=== PATIENT | male | born 1990 | race African-American/Black ===

== ENCOUNTER 2018-05-18 15:38 | Emergency (ER) | payer OTHER ==
[~2018-05-18] VITALS: Ht 182.9 cm; Wt 75.0 kg
[2018-05-18] MEDS ORDERED: MELA1LIQ2 PO (15:46)
[2018-05-18 16:16] LABS: BASO % 0.5 % (0.0-1.0); EOS # 0.1 10^3/uL (0.0-0.50); EOS % 1.5 % (0.0-3.0); HEMATOCRIT 50.3 % (42.0-52.0); HEMOGLOBIN 16.7 g/dl (13.5-17.5); LYMPH # 1.7 10^3/uL (1.5-6.5); LYMPH % 43.3 % (24.0-44.0); MEAN CORPUSCULAR HEMOGLOBIN 26.1 pg (27.0-33.0); MEAN CORPUSCULAR HGB CONC 33.2 g/dl (32.0-36.5); MEAN CORPUSCULAR VOLUME 78.5 fl (80.0-96.0); MONO # 0.3 10^3/uL (0.0-0.8); MONO % 8.6 % (0.0-5.0); NEUTROPHILS # 1.8 10^3/uL (1.8-7.7); NEUTROPHILS % 45.3 % (36.0-66.0); PLATELET COUNT, AUTOMATED 204 10^3/uL (150-450); RED BLOOD COUNT 6.41 10^6/uL (4.30-6.10)
[2018-05-18] MEDS ORDERED: KETOROLAC 30 MG/ML VIAL (J1885) IV ONE (16:45)
[2018-05-18] MEDS ORDERED: NS 1,000 ML IV ONE (16:45)
[2018-05-18 16:46] LABS: ALBUMIN 4.7 GM/DL (3.2-5.2); ALT/SGPT 46 U/L (12-78); AMYLASE 59 U/L (25-115); BILIRUBIN,DIRECT 0.2 MG/DL (0.0-0.2); BILIRUBIN,TOTAL 1.3 MG/DL (0.2-1.0); BLOOD UREA NITROGEN 12 MG/DL (7-18); CALCIUM LEVEL 9.8 MG/DL (8.5-10.1); CARBON DIOXIDE LEVEL 32 MEQ/L (21-32); CHLORIDE LEVEL 97 MEQ/L (98-107); CREATININE FOR GFR 1.34 MG/DL (0.70-1.30); GLOMERULAR FILTRATION RATE > 60.0 (>60); GLUCOSE, FASTING 96 MG/DL (70-100); POTASSIUM SERUM 4.3 MEQ/L (3.5-5.1); SODIUM LEVEL 137 MEQ/L (136-145); TOTAL PROTEIN 8.8 GM/DL (6.4-8.2)
[2018-05-18 17:02] LABS: LIPASE 85 U/L (73-393)
[2018-05-18] MEDS ORDERED: ISOVUE-370 76% 100ML VIAL (Q9967) As Ordered ONE (17:02)
--- NOTE | 2018-05-18 18:39 | REP ---
CT ABDOMEN AND PELVIS WITH CONTRAST: HISTORY: Periumbilical and right lower quadrant pain. CONTRAST: Isovue-370 100 mL. The gallbladder wall appears minimally thickened measuring 3.5 mm. There is no cholelithiasis. The liver pancreas, spleen, adrenal glands and kidneys are normal in appearance. There is no mass adenopathy or free fluid. The visualized lungs are clear. The prostate gland and urinary bladder are normal in appearance. The appendix is not definitely seen. There is no appendicolith or right lower quadrant abscess. A small 2 cm midline ventral abdominal hernia containing a nondilated loop of intestine is present. The visualized lungs are clear. IMPRESSION: 1. There is minimal thickening of the gallbladder wall. There is no cholelithiasis. Ultrasound may be helpful for further evaluation. 2. There is a small 2 cm ventral abdominal hernia containing a nondilated loop of intestine. Electronically Signed by Jens Hollins MD 05/18/2018 06:50 P
[2018-05-18 21:09] VITALS: BP 133/95
== END 2018-05-18 21:11 | disposition home or self-care (01) ==
LOC: EDBD 15:38 → M ED 15:38
DX: K43.9 Ventral hernia without obstruction or gangrene (principal); Z88.8 Allergy status to other drugs, medicaments and biological substances
CPT/HCPCS: 74177; 80048; 80076; 81001; 82150; 83605; 83690; 85025; 96361; 96374; 99284; J1885; Q9967

== ENCOUNTER 2019-04-22 19:37 | Outpatient (CLI) | payer OTHER ==
[~2019-04-22 19:37] MED LIST: MELA1LIQ2 PO
--- NOTE | 2019-04-23 21:30 | SLEEPCENT ---
DATE OF PROCEDURE: 04/22/2019 Ordered by: MALU Ahumada Nocturnal polysomnography was performed for evaluation of sleep physiology in this patient with nonrestorative sleep and complaints of insomnia who has comorbidities of traumatic brain injury. 7 hours and 58 minutes of data were reviewed. There were only 125 minutes of sleep identified. Sleep latency was prolonged at 95.5 minutes. The patient did not achieve REM sleep. Sleep architecture was poor with poor sleep progression and frequent fragmentation. Overall sleep efficiency was 26.5%. The patient's electrocardiogram showed a sinus rhythm with an average heart rate of 60 beats per minute. EEG showed no focal events and fairly normal waveforms for awake and sleep stages. There were 15 respiratory events identified of 10 seconds in duration or greater for an apnea-hypopnea index of 7.2. The events were hypopneic, not exclusive to sleep stage nor body posture. there was also some snoring and snore related arousals occurred 3.8 times per hour. There was some limb activity in the EMG leads, but limb movement arousal index was only 3.4. IMPRESSION Equivocal nocturnal polysomnography respiratory patterning strongly suggestive of obstructive sleep apnea syndrome. RECOMMENDATIONS The patient slept very poorly in the lab making it difficult to assign a specific diagnosis based on these findings. There were obstructive respiratory events seen consistent with obstructive sleep apnea syndrome. Perhaps retesting now that the patient is accustomed to the sleep lab environment will result in a more robust night of sleep and allow for establishment of a definitive diagnosis.
== END 2019-04-23 15:00 ==
LOC: M SLEEP 19:37
PROVIDERS: ATTEND Nurse Practitioner Family
DX: R40.0 Somnolence (principal)

== ENCOUNTER → 2019-05-21 | Outpatient (CLI) | payer OTHER ==
--- NOTE | 2019-05-24 14:54 | SLEEPCENT ---
DATE OF STUDY: 05/21/2019 ORDERED BY: Audrey Bauer Nocturnal polysomnography was performed for evaluation of sleep physiology in this patient with a history of excessive somnolence and nonrestorative sleep. 7 hours and 58 minutes of data were reviewed. There only 51.5 minutes of sleep identified. The patient's sleep latency was 219.5 minutes. Rapid eye movement (REM) sleep was not achieved. Sleep architecture was poor. There was no significant sleep progression seen. Overall sleep efficiency was 11%. The patient's electrocardiogram showed a sinus rhythm with occasional premature ventricular contractions (PVCs). EEG showed reasonably normal waveforms for awake and sleep stages. There was some snoring appreciated but no respiratory events, and some limb activity of unclear significance was appreciated. IMPRESSION: Equivocal nocturnal polysomnography with limited sleep time. RECOMMENDATION: The patient had a great deal of difficulty achieving sleep in the lab setting. Perhaps retesting would be helpful now that the patient is accustomed to the process of the test.
== END ==
LOC: M SLEEP 20:15
PROVIDERS: ATTEND Nurse Practitioner Family
DX: R40.0 Somnolence (principal); R06.83 Snoring; G47.00 Insomnia, unspecified